=== PATIENT | male | born 1980 | race Caucasian/White ===

== ENCOUNTER 2024-09-21 10:03 | Emergency (ER) | payer MEDICAID, OTHER ==
[~2024-09-21] VITALS: Ht 172.7 cm; Wt 104.5 kg
--- NOTE | 2024-09-21 10:16 | ELECTROCARDIOGRAPH REPORT ---
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 Niraj Mcdaniels Measurements Intervals [place] Rate: 90 P: 27 MO: 178 QRS: 11 QRSD: 99 T: 31 QT: 368 QTc: 451 Interpretive Statements Sinus rhythm Electronically Signed On 09-22-2024 19:28:[address] Niraj Mcdaniels Please click the below link to view image of tracing.
[2024-09-21 10:26] LABS: MEAN PLATELET VOLUME 7.8 FL (7.4-10.4); RED CELL DISTRIBUTION WIDTH 13.6 % (11.5-14.5)
[2024-09-21 10:38] VITALS: TEMP 98.4
--- NOTE | 2024-09-21 10:43 | Physician Documentation ---
History of Present Illness ~ Chief Complaint: Chest Pain Stated Complaint: CP SOB HIGH BLOOD PRESSURE Time Seen by MD: 10:13 Primary Medical Doctor: none Source: patient Mode of Arrival: POV, Ambulatory Exam Limitations: no limitations HPI Patient with no medical history in with chest pain on the left that started around 7:00 a.m.. Has been going on steady for a few hours now. Pressure like sensation. Pain is 5/10. Pain down the left arm. Does feel short of breath and got very sweaty. Nonsmoker, no alcohol or drugs. No cardiac history in the family. He has never had this pain before. Did go to another clinic this morning and was given 325 of aspirin. Medication Reconciliation Allergies: Coded Allergies: No Known Allergies (Unverified , 09/21/24) Past Medical History Past Medical History: No Pertinent History Alcohol Use: Rarely Drug Use: none Lives In: Home Occupation: employed Review of Systems All Other Systems at this time: Reviewed and Negative Physical Exam Vital Signs: Temperature: 98.4, Source: Oral, Heart Rate: 93, Respiratory Rate: 19, BP: 180/112, Pulse Oximetry: 93, Weight: 104.550 Oxygen Flow Rate: 0 General Appearance: alert, WD/WN Neck: normal inspection, full range of motion Respiratory: lungs clear, normal breath sounds, no respiratory distress Chest: no accessory muscle use Cardiovascular: regular rate, rhythm, no edema, no JVD, no murmur Gastrointestinal: normal palpation, non-tender Extremities: normal inspection Neurologic: oriented x4, memory intact Psychiatric: normal mood/affect Skin: normal color, warm/dry Progress Progress Note Patient's pain resolved in the ED while waiting for the 2nd tests. Troponin negative x2. EKG unremarkable. CBC and chemistry negative. Chest x-ray negative. EKG and chest x-ray independently reviewed by me. Discharging home in good condition. He is to follow up with his PCP to get echocardiogram and referral to Cardiology. Return here in the interim if new or worsening symptoms. Results/Orders Results/Orders Orders - AUTUMN ANDREW MD Chest,Single View (09/21/24 10:53) Monitor (09/21/24 10:14) Saline Lock (09/21/24 10:14) Oxygen (09/21/24 10:14) Nitroglycerin Sublingual Tab (Nitrostat (09/21/24 10:20) Completed Orders - AUTUMN ANDREW MD Chest,Single View (09/21/24 10:53) Cbc/Diff (09/21/24 10:14) BMP (09/21/24 10:14) PBNP (09/21/24 10:14) Electrocardiogram (09/21/24 10:14) Hs Troponin I W Calculations (09/21/24 10:14) Hs Troponin I W Calculations (09/21/24 12:14) Aspirin 81mg Chew Tablet (Aspirin 81mg C (09/21/24 10:20) Ketorolac Trometh 30mg/Ml Vial (Toradol (09/21/24 11:10) Medications Received in ER Medications (Trade) Dose Ordered Sig/Ross Route PRN Reason Start Time Stop Time Status Last Admin Dose Admin (aspirin 81MG chew tablet) 324 mg ONCE ONCE PO 09/21/24 10:20 09/21/24 10:21 DC 09/21/24 10:30 324 MG (Nitrostat SL tablet) 0.4 mg Q5MIN PRN SL chest pain 09/21/24 10:20 09/21/24 10:33 0.4 MG (Toradol inj. 30mg/ml) 30 mg ONCE ONCE IV 09/21/24 11:10 09/21/24 11:11 DC 09/21/24 11:22 30 MG Vital Signs 09/21/24 09/21/24 09/21/24 09/21/24 10:10 10:16 10:38 10:49 Temp 98.4 98.4 Pulse 78 93 93 Resp 16 19 20 B/P (MAP) 164/111 180/112 (134) 151/108 (122) Pulse Ox 99 93 95 O2 Flow Rate 0 0 0 09/21/24 09/21/24 09/21/24 11:22 11:27 13:20 Pulse 69 Resp 18 18 17 B/P (MAP) 155/117 (130) Pulse Ox 97 Laboratory Tests Test 09/21/24 10:10 09/21/24 12:32 White Blood Count 8.1 Red Blood Count 5.12 Hemoglobin 16.2 Hematocrit 46.5 Mean Corpuscular Volume 90.9 Mean Corpuscular Hemoglobin 31.6 H Mean Corpuscular Hemoglobin Concent 34.8 Red Cell Distribution Width 13.6 Platelet Count 264 Mean Platelet Volume 7.8 Neutrophils (%) (Auto) 69.1 Lymphocytes (%) (Auto) 21.0 Monocytes (%) (Auto) 6.8 Eosinophils (%) (Auto) 2.3 Basophils (%) (Auto) 0.8 Neutrophils # (Auto) 5.6 Lymphocytes # (Auto) 1.7 Monocytes # (Auto) 0.6 Eosinophils # (Auto) 0.2 Basophils # (Auto) 0.1 CBC Comment Sodium Level 135 Potassium Level 3.8 Chloride Level 103 Carbon Dioxide Level 26.6 Anion Gap 5 L Blood Urea Nitrogen 14 Creatinine 0.90 Estimated GFR/1.73 m2 > 90 BUN/Creatinine Ratio 15.6 Glucose Level 112 H Calcium Level 8.9 Troponin I High Sensitivity 11 10 Pro-B-Type Natriuretic Peptide < 30 Albumin 3.9 Chemistry Comments Troponin I High Sens Percent Delta 9 Troponin I Hi Sens Absolute Change -1 EKG/XRAY/CT/US/VASC/MRI EKG : EKG Rate: 90 EKG: NSR, no ST T wave changes, MI (178) Medical Decision Making Additional Information Differential includes but is not limited to: Myocardial infarction, tamponade, dissection, pneumothorax, pneumonia, GERD, gastritis, costochondritis, pleurisy, pericarditis Departure Impression: Primary Impression: Chest pain Qualified Codes: R07.9 - Chest pain, unspecified Condition: Improved Discharge Instructions: Nonspecific Chest Pain, Adult Additional Instructions: Follow up with your doctor in the next 7-10 days. You need an echocardiogram or ultrasound of your heart. You should also have a referral for follow up with Cardiology. Return here in the interim if new or worsening symptoms prior to follow up. Referrals: NO PRIMARY CARE PROVIDER (PCP) Education Educated: Patient Educated regarding: diagnosis, treatment, need for follow up Signature Scribe Signature: No scribe used Attestation: No scribe used AUTUMN ANDREW MD Sep 21, 2024 10:43
[2024-09-21 10:47] LABS: CREATININE 0.90 MG/DL (0.60-1.10); PRO BRAIN NATRIURETIC PEPTIDE < 30 PG/ML (0-125); TOTAL CARBON DIOXIDE 26.6 MMOL/L (24-32); eCRCL 102 ML/MIN; eGFR > 90 ML/MIN
--- NOTE | 2024-09-21 11:14 | RADIOLOGY REPORT ---
CHEST RADIOGRAPH Indication: CP Technique: Single frontal view of the chest was obtained COMPARISON: None FINDINGS: Lines and Tubes: None Lungs: Clear Pleura: No effusion. No pneumothorax. Cardiomediastinal contours: Unremarkable Bones: Unremarkable IMPRESSION: No acute disease.
[2024-09-21] MEDS: ketorolac trometh 30MG/ML vial 30 MG/ML VIAL IV ONE (11:22)
[2024-09-21 13:46] VITALS: BP 153/109; PULSE 74; RESP 14; O2SAT 97
== END 2024-09-21 13:49 | disposition home or self-care (01) ==
LOC: ER 10:04
DX: R07.89 Other chest pain (principal)
CPT/HCPCS: 36415; 71045; 80048; 83880; 84484; 85025; 93005; 96374; 99285; J1885

== ENCOUNTER 2025-01-22 22:02 | Emergency (ER) | payer OTHER ==
[~2025-01-22] VITALS: Ht 175.3 cm; Wt 105.4 kg
[2025-01-22 23:18] LABS: CREATININE 1.02 MG/DL (0.60-1.10); TOTAL CARBON DIOXIDE 30.9 MMOL/L (24-32); eCRCL 89 ML/MIN; eGFR 79 ML/MIN
--- NOTE | 2025-01-22 23:18 | RADIOLOGY REPORT ---
CHEST RADIOGRAPH Indication: COUGH Technique: Frontal and lateral view of the chest was obtained Comparison: DI CHEST,SINGLE VIEW on DOS: 09/21/24 FINDINGS: Lines and Tubes: None Lungs: Clear Pleura: No effusion. No pneumothorax. Cardiomediastinal contours: Unremarkable Bones: Unremarkable IMPRESSION: 1. No evidence of acute disease.
[2025-01-22 23:23] LABS: MEAN PLATELET VOLUME 7.8 FL (7.4-10.4); RED CELL DISTRIBUTION WIDTH 13.4 % (11.5-14.5)
[2025-01-22 23:27] LABS: LEUKOCYTE ESTERASE ,URINE NEGATIVE (Neg); NITRITES, URINE NEGATIVE (Neg); OCCULT BLOOD,URINE NEGATIVE (Neg)
[2025-01-22 23:30] LABS: UA COLLECTION TYPE VOIDED
--- NOTE | 2025-01-22 23:55 | Physician Documentation ---
History of Present Illness ~ General Chief Complaint: Multiple Medical Complaints Stated Complaint: VOMITING Time Seen by MD: 23:54 Primary Medical Doctor: none History of Present Illness Initial Comments Patient presents to the emergency room with four day history of nausea vomiting abdominal pain and fevers. Taken ibuprofen and Tylenol for his symptoms. No sick contacts. Medication Reconciliation Allergies: Coded Allergies: No Known Allergies (Unverified , 09/21/24) Past Medical History Past Medical History: No Pertinent History Alcohol Use: Rarely Drug Use: none Lives In: Home Occupation: employed Review of Systems ROS All review of systems negative except as per HPI Physical Exam Physical Exam Vital Signs: Temperature: 100.1, Source: Oral, Heart Rate: 111, Respiratory Rate: 19, BP: 164/100, Pulse Oximetry: 96, Weight: 105.410 Oxygen Flow Rate: 0 Physical Exam General: Patient is awake, alert, oriented x4 in no acute distress Head: Normocephalic and atraumatic. Eyes: Conjunctival normal. EOMI. PERRL. ENT: Mucous membranes moist. Neck: Supple, trachea is midline. Chest: Clear to auscultation bilaterally without rales, rhonchi, or wheezes. There is no accessory muscle use or retractions. Cardiac: RRR without murmurs, gallops, or rubs. Abd: Soft, nondistended, nontender, with normoactive bowel sounds. No guarding, rebound, or rigidity. Progress Results/Orders Results/Orders Orders - JAROD KIRK MD Normal Saline 1000ml (0.9% Sodium Chlori (01/23/25 00:00) Completed Orders - JAROD KIRK MD Influenza Type A&B Rapid Test (01/22/25 23:57) Ondansetron Inj. (Zofran 4mg/2ml Vial) (01/23/25 00:00) Ketorolac Trometh 15mg/Ml Vial (Toradol (01/23/25 00:00) Medications Received in ER Medications (Trade) Dose Ordered Sig/Ross Route PRN Reason Start Time Stop Time Status Last Admin Dose Admin (Tylenol tablet) 650 mg ONCE ONCE PO 01/22/25 22:30 01/22/25 22:34 DC 01/22/25 22:37 650 MG (Zofran 4mg/2ml vial) 8 mg ONCE ONCE IV 01/23/25 00:00 01/23/25 00:01 DC 01/23/25 00:13 8 MG Sodium Chloride 1,000 ml @ 1,000 mls/hr ONCE ONCE IV 01/23/25 00:00 01/23/25 00:59 01/23/25 00:10 1,000 MLS/HR (Toradol injection) 15 mg ONCE ONCE IV 01/23/25 00:00 01/23/25 00:01 DC 01/23/25 00:12 15 MG Vital Signs 01/22/25 01/23/25 01/23/25 22:19 00:12 00:17 Temp 100.1 Pulse 111 Resp 19 16 16 B/P (MAP) 164/100 Pulse Ox 96 O2 Flow Rate 0 Laboratory Tests Test 01/22/25 22:34 01/22/25 22:51 01/22/25 23:00 01/22/25 23:57 SARS-CoV-2 Antigen (Rapid) Negative White Blood Count 10.2 Red Blood Count 4.62 L Hemoglobin 14.7 Hematocrit 42.7 Mean Corpuscular Volume 92.4 Mean Corpuscular Hemoglobin 31.9 H Mean Corpuscular Hemoglobin Concent 34.5 Red Cell Distribution Width 13.4 Platelet Count 293 Mean Platelet Volume 7.8 Neutrophils (%) (Auto) 75.3 H Lymphocytes (%) (Auto) 10.4 L Monocytes (%) (Auto) 12.3 H Eosinophils (%) (Auto) 1.5 Basophils (%) (Auto) 0.5 Neutrophils # (Auto) 7.7 Lymphocytes # (Auto) 1.1 Monocytes # (Auto) 1.3 H Eosinophils # (Auto) 0.2 Basophils # (Auto) 0.1 CBC Comment Sodium Level 137 Potassium Level 4.1 Chloride Level 100 Carbon Dioxide Level 30.9 Anion Gap 6 L Blood Urea Nitrogen 15 Creatinine 1.02 Estimated GFR/1.73 m2 79 BUN/Creatinine Ratio 14.7 Glucose Level 141 H Calcium Level 8.8 Total Bilirubin 0.5 Aspartate Amino Transf (AST/SGOT) 35 Alanine Aminotransferase (ALT/SGPT) 59 Alkaline Phosphatase 116 Total Protein 8.4 H Albumin 3.9 Globulin 4.5 H Albumin/Globulin Ratio 0.9 L Lipase 29 Chemistry Comments Urine Specimen Description Voided Urine Color Yellow Urine Clarity Clear Urine pH 6.0 Urine Specific [place] >=1.030 Urine Protein Negative Urine Glucose (UA) Negative Urine Ketones Negative Urine Occult Blood Negative Urine Nitrite Negative Urine Bilirubin Negative Urine Urobilinogen 1.0 Urine Leukocyte Esterase Negative Urine Culture Indicated Not ind Volume Urine Centrifuged 10 ml Urine Comment Influenza Type A Antigen Negative Influenza Type B Antigen Negative Medical Decision Making Additional information obtaine: old records Findings Patient presented in the emergency room for evaluation nausea vomiting and abdominal pain. Differentials include but are not limited to viral syndrome, dehydration, electrolyte disturbances, kidney failure therefore emergent labs indicated. Labs reassuring and patient is responding to treatment. He had not feel he requires a CT scan. ER precautions discussed. Symptoms likely viral in nature. Differential Diagnosis h Departure Disposition: HOME / SELF CARE / HOMELESS Impression: Primary Impression: Vomiting Condition: Improved Discharge Instructions: Nausea and Vomiting, Adult Referrals: NO PRIMARY CARE PROVIDER (PCP) Prescriptions Ondansetron 8mg ODT (Ondansetron Odt) 8 Mg Tab.rapdis 1 TAB PO Q6H for nausea/vomiting for 3 Days, #12 TAB 0 Refills Prov: JAROD KIRK MD 01/23/25 Signature Scribe Signature: No scribe Attestation: The note accurately reflects work and decisions made by me.Jarod Kirk MD 01/23/25 00:57 JAROD KIRK MD Jan 22, 2025 23:55
[2025-01-23] MEDS: normal saline 1000ml 1,000 ML IV ONE (00:10)
[2025-01-23] MEDS: ketorolac trometh 15mg/ml vial 15 MG/ML ML IV ONE (00:12)
[2025-01-23] MEDS: ondansetron/PF 4mg/2ml inj IV ONE (00:13)
[2025-01-23 00:51] LABS: INFLUENZA TYPE A ANTIGEN RAPID NEGATIVE (Negative); INFLUENZA TYPE B ANTIGEN RAPID NEGATIVE (Negative)
[2025-01-23] MEDS ORDERED: ONDA-245 PO (00:57)
[2025-01-23 01:38] VITALS: BP 139/92; PULSE 84; RESP 16; TEMP 98.6; O2SAT 95
== END 2025-01-23 01:42 | disposition home or self-care (01) ==
LOC: ER 22:03
DX: R11.2 Nausea with vomiting, unspecified (principal); R50.9 Fever, unspecified; R10.9 Unspecified abdominal pain; Z20.822 Contact with and (suspected) exposure to COVID-19
CPT/HCPCS: 36415; 71046; 80053; 81003; 83690; 85025; 87804; 87811; 96361; 96374; 96375; 99284; J1885; J2405; J7030